=== PATIENT | female | born 1970 | race African-American/Black ===

== ENCOUNTER 2017-09-23 18:42 | Emergency (ER) | payer BC ==
[~2017-09-23 18:42] MED LIST: BACLOFEN10 MG PO; BAYER CHEWABLE81 MG PO; DILANTIN30 MG PO; NAPROSYN250 MG PO; NAPROSYN500 MG PO; NITROSTAT0.4 MG SL
== END 2017-09-23 20:03 | disposition home or self-care (01) ==
LOC: D.ER 18:42
DX: H66.93 Otitis media, unspecified, bilateral (principal); H92.03 Otalgia, bilateral; I50.9 Heart failure, unspecified; Z86.73 Personal history of transient ischemic attack (TIA), and cerebral infarction without residual deficits